=== PATIENT | male | born 1990 | race Caucasian/White ===

== ENCOUNTER 2016-06-12 16:51 | Emergency (ER) | payer OTHER ==
[2016-06-12 17:11] VITALS: BP 134/78
[2016-06-12] MEDS ORDERED: Fluorescein Sodium TOPICAL* 1 MG TEST ONE (17:29)
[2016-06-12] MEDS ORDERED: Tetracaine 0.5% OPTH.SOL 15ML* BTL ONE (17:30)
[2016-06-12] MEDS ORDERED: BSS OPTH.SOL* BTL ONE (17:30)
--- NOTE | 2016-06-12 17:59 | UC ---
Eye Complaint HPI - HPI Summary HPI Summary: L eye redness, irritation, and drainage since yesterday. Denies recent grinding , welding, or hammering. - History of Current Complaint Chief Complaint: UCEye Stated Complaint: EYE IRRITATION Time Seen by Provider: 06/12/16 17:11 Hx Obtained From: Patient Onset/Duration: Gradual Onset, Lasting Hours Timing: Constant Severity Initially: Mild Severity Currently: Mild Location of Injury: Conjunctiva Aggravating Factor(s): Nothing Alleviating Factor(s): Nothing Associated Signs And Symptoms: Positive: Drainage (Purulent) - Risk Factors Penetrating Injury Risk Factor: Negative - Allergies/Home Medications Allergies/Adverse Reactions: Allergies Allergy/AdvReac Type Severity Reaction Status Date / Time Azithromycin Allergy Hives Verified 06/12/16 17:13 [From Zithromax Z-Bhanu] Home Medications: Home Medications Amphetamine-Dextroamphetamine [Adderall 10 mg-] 1 tab PO DAILY 06/12/16 [ History Confirmed 06/12/16] Bupropion XL (NF) [Wellbutrin XL (NF)] 1 06/12/16 [History] PMH/Surg Hx/FS Hx/Imm Hx Endocrine History Of: Denies: Diabetes, Thyroid Disease Cardiovascular History Of: Denies: Cardiac Disorders, Hypertension Respiratory History Of: Denies: COPD, Asthma GI/ History Of: Denies: Ulcer - Surgical History Surgical History: None Surgery Procedure, Year, and Place: wisdom teeth - Family History Known Family History: Positive: Hypertension - Social History Lives: Alone Alcohol Use: Weekly Substance Use Type: None Smoking Status (MU): Former Smoker Length of Time of Smoking/Using Tobacco: 3 years When Did the Patient Quit Smoking/Using Tobacco: 2016 - Immunization History Most Recent Influenza Vaccination: denies Review of Systems Constitutional: Negative Skin: Negative Eyes: Drainage, Eye Redness ENT: Negative Respiratory: Negative Cardiovascular: Negative Gastrointestinal: Negative Genitourinary: Negative Motor: Negative Neurovascular: Negative Musculoskeletal: Negative Neurological: Negative Psychological: Negative All Other Systems Reviewed And Are Negative: Yes Physical Exam Triage Information Reviewed: Yes Appearance: Well-Appearing, No Pain Distress, Well-Nourished Vital Signs: Initial Vital Signs Temp 97.7 F 06/12/16 17:03 Pulse 76 06/12/16 17:03 Resp 18 06/12/16 17:03 BP 134/78 06/12/16 17:03 Pulse Ox 100 06/12/16 17:03 Vital Signs Reviewed: Yes Eye Exam: Other - PERRL, fluorescein dye test negative for uptake Eyes: Positive: Conjunctiva Inflamed ENT Exam: Normal ENT: Positive: Normal ENT inspection, Hearing grossly normal, Pharynx normal, TMs normal Dental Exam: Normal Neck exam: Normal Neck: Positive: Supple, Nontender, No Lymphadenopathy Respiratory Exam: Normal Respiratory: Positive: Chest non-tender, Lungs clear, Normal breath sounds, No respiratory distress, No accessory muscle use Cardiovascular Exam: Normal Cardiovascular: Positive: RRR, No Murmur Musculoskeletal Exam: Normal Neurological Exam: Normal Psychological Exam: Normal Skin Exam: Normal Eye Complaint Course/Dx - Differential Dx/Diagnosis Provider Diagnoses: L eye conjunctivitis Discharge - Discharge Plan Condition: Stable Disposition: HOME Prescriptions: Ciprofloxacin 0.3% OPTH.ESTER* [Cipro 0.3% Opth*] 2 drop LEFT EYE QID #5 ml Patient Education Materials: Conjunctivitis (ED) Additional Instructions: Use drops until symptoms resolve for 48 hours. Come back if you have new or worsening symptoms, or if you have not seen some improvement within a week.
[2016-06-12] MEDS ORDERED: Ciprofloxacin 0.3% OPTH.SOL* 2.5 ML BTL LEFT EYE ONE (18:01)
== END 2016-06-12 17:58 | disposition home or self-care (01) ==
LOC: UCEAST 16:51
DX: H10.32 Unspecified acute conjunctivitis, left eye (principal); Z88.1 Allergy status to other antibiotic agents; Z87.891 Personal history of nicotine dependence
CPT/HCPCS: 99212; A9270-GY; G0463

== ENCOUNTER 2019-06-12 08:21 | Emergency (ER) | payer OTHER ==
--- OUTSIDE RECORDS SUMMARY | 2019-06-12 08:28 | XMS REPORT ---
:1990 Author Organization [facility] Care Team Providers Name Role Phone Tayo Schilling Primary Care Physician Unavailable Allergies, Adverse Reactions, Alerts Allergy Code CodeSystem Reaction Severity Criticality Status Start Substance Date Moderate Medications Medication Medication Medication Start Stop Route Dose Status Fill Code CodeSystem Date Date Instructions RxNorm Problems Problem Name Code CodeSystem Alternate Alternate Start End Status Narrative Code CodeSystem Date Date Disturbance 87753252 SNOMED-CT 2018-04 Active of activity 05-09 and attention Relevant diagnostic tests/laboratory data Narrative No Information Procedures Procedure Code CodeSystem Target Date of Status Service Device Device Device Name Site Procedure Delivery Code Name UID Location Psychother 5098801 SNOMED-CT () 2019-03-26 completed Mental apy, 45 [facility] patient [address], [place], [id number] SNOMED-CT () 2019-04-[address], [id number] SNOMED-CT () 2019-02-[address], [id number] Encounters/Encounter Diagnoses Encounter Name Encounter Diagnosis Diagnosis Diagnosis Date of Service Code Code Name CodeSystem Diagnosis Delivery Location Psychotherapy - 06092 SNOMED-CT 2019-04-14 Behavioral [facility] [address], [place], [phone] Vital Signs No Information Social History Element Description Description Start End Code CodeSystem AdditionalInfo Date Date SexAssignedAtBirth Male 1990-0 M AdministrativeGender 10-07 Hospital Discharge Instructions Reason For Referral Medical Equipment FDA Assessments
[2019-06-12 09:11] VITALS: BP 109/68
--- NOTE | 2019-06-12 10:05 | UC ---
Abdominal Pain Male HPI - HPI Summary HPI Summary: 28 yo male presents with abdominal pain. He tells me that on 06/10 he developed periumbilical pain and loose stools. This continued into yesterday at which point he became nauseous with a decreased appetite. Last night and over the night his abdominal pain worsened and he was up about 4-5 times with a BM. This morning he has gone about 3 times. States stool is mostly watery with intermittent "green chunks". He has not vomited. Has not eaten today, but has been drinking water. Endorses a headache. Denies fever, chills, SOB, chest pain , vomiting, blood in stool, dysuria, flank pain. - History of Current Complaint Chief Complaint: UCAbdominalPain Stated Complaint: ABDOMINAL COMPLAINT Time Seen by Provider: 06/12/19 10:04 Hx Obtained From: Patient Onset/Duration: Gradual Onset Severity Initially: Mild Severity Currently: Moderate Pain Intensity: 7 Pain Scale Used: 0-10 Numeric - Allergies/Home Medications Allergies/Adverse Reactions: Allergies Allergy/AdvReac Type Severity Reaction Status Date / Time azithromycin Allergy Hives Verified 06/12/19 09:03 Home Medications: Home Medications Bupropion XL (NF) [Wellbutrin XL 300 MG (NF)] 1 tab PO DAILY 06/12/16 [History Confirmed 06/12/19] Dextroamphetamine/Amphetamine [Adderall 10 mg-] 1 tab PO DAILY 06/12/16 [ History Confirmed 06/12/19] PMH/Surg Hx/FS Hx/Imm Hx - Additional Past Medical History Additional PMH: ADD Anxiety - Surgical History Surgical History: Yes Surgery Procedure, Year, and Place: wisdom teeth - Family History Known Family History: Positive: Hypertension - Social History Lives: Alone Alcohol Use: None Substance Use Type: None Smoking Status (MU): Former Smoker Length of Time of Smoking/Using Tobacco: 3 years When Did the Patient Quit Smoking/Using Tobacco: 2014 - Immunization History Most Recent Influenza Vaccination: denies Review of Systems All Other Systems Reviewed And Are Negative: No Constitutional: Positive: Negative Skin: Positive: Negative Eyes: Positive: Negative ENT: Positive: Negative Respiratory: Positive: Negative Cardiovascular: Positive: Negative Gastrointestinal: Positive: Abdominal Pain, Diarrhea, Nausea Genitourinary: Positive: Negative Motor: Positive: Negative Neurovascular: Positive: Negative Musculoskeletal: Positive: Negative Neurological/Mental Status: Positive: Headache Psychological: Positive: Negative Physical Exam - Summary Physical Exam Summary: GENERAL: NAD. WDWN. No pain distress. SKIN: No rashes, sores, or open wounds. HEENT: Head: AT/NC Eyes: PERRLA. EOM intact. Conjunctiva clear without inflammation or discharge. Ears: Hearing grossly normal. TMs intact, no bulging, erythema, or edema. Nose: Nasal mucosa pink and moist. NTTP maxillary and frontal sinus. Throat: Posterior oropharynx without exudates, erythema, or tonsillar enlargement. Uvula midline. NECK: Supple. Nontender. No lymphadenopathy. CHEST: CTAB. No r/r/w. No accessory muscle use. Breathing comfortably and in no distress. CV: RRR. Pulses intact. Brisk cap refill. ABDOMEN: Mild RLQ mcburnery point TTP. Negative psoas and rovsings. No distention or guarding. No CVA tenderness. Bowel sounds present NEURO: Alert. PSYCH: Age appropriate behavior. Triage Information Reviewed: Yes Vital Signs: Initial Vital Signs Temp 99.4 F 06/12/19 09:04 Pulse 106 06/12/19 09:04 Resp 18 06/12/19 09:04 BP 109/68 06/12/19 09:04 Pulse Ox 99 06/12/19 09:04 Vital Signs Reviewed: Yes Abd Pain Male Course/Dx - Course Course Of Treatment: Given RLQ pain with worsening abdominal pain over the last 2.5 days - recommend going to the ED for further evaluation over concerns of appendicitis. I discussed this with the pt and asked that he remain NPO and he states he will go to the ED now. - Differential Dx/Clinical Impression Provider Diagnosis: RLQ abdominal pain, Diarrhea Discharge ED - Sign-Out/Discharge Documenting (check all that apply): Patient Departure All imaging exams completed and their final reports reviewed: No Studies - Discharge Plan Condition: Stable Disposition: HOME-RECOMMEND TO ED Referrals: Ramsey Prince MD [Primary Care Provider] - Additional Instructions: Please go to the ER for further evaluation of your RLQ abdominal pain. Nothing to eat or drink until seen -- Concern for appendicitis today from CC - Billing Disposition and Condition Condition: STABLE Disposition: Home-Recommend to ED
== END 2019-06-12 10:40 | disposition home health service (06) ==
LOC: UCEAST 08:21
DX: R19.7 Diarrhea, unspecified (principal); R10.31 Right lower quadrant pain; R51 Headache; R11.0 Nausea; F98.8 Other specified behavioral and emotional disorders with onset usually occurring in childhood and adolescence; F41.9 Anxiety disorder, unspecified; Z79.899 Other long term (current) drug therapy; Z87.891 Personal history of nicotine dependence; Z88.1 Allergy status to other antibiotic agents
CPT/HCPCS: 99212; G0463

== ENCOUNTER 2019-06-12 11:12 | Emergency (ER) | payer OTHER ==
[2019-06-12] MEDS ORDERED: Ketorolac INJ* 30 MG/ML 1 ML VIAL IV PUSH ONE (11:43)
[2019-06-12] MEDS ORDERED: NS 0.9% 1000 ML** 1,000 ML IV ONE ×2 (11:43→12:32)
--- NOTE | 2019-06-12 11:49 | ED ---
GI/ HPI - HPI Summary HPI Summary: 28 year old male presents with abdominal pain today. He has been having diarrhea. Pain is located periumbilically. States when he has the diarrhea the pain is better. He denies any n/v. He has not had much of an appetite. Denies any fevers. No urinary symptoms. No previous surgeries. He did not eat anything different. people are sick around him. No recent travel. Has not been on antibiotics recently. Denies any blood in his stool. Has no medical conditions. - History of Current Complaint Chief Complaint: EDAbdPain Time Seen by Provider: 06/12/19 11:29 Stated Complaint: ABD PAIN PER PT Pain Intensity: 4 - Allergy/Home Medications Allergies/Adverse Reactions: Allergies Allergy/AdvReac Type Severity Reaction Status Date / Time azithromycin Allergy Hives Verified 06/12/19 11:18 Home Medications: Home Medications Bupropion XL (NF) [Wellbutrin XL 300 MG (NF)] 300 mg PO DAILY 06/12/16 [History Confirmed 06/12/19] Dextroamphetamine/Amphetamine [Adderall 10 mg-] 20 mg PO DAILY 06/12/16 [ History Confirmed 06/12/19] Albuterol HFA INHALER* [Ventolin HFA Inhaler*] 2 puff INH Q6H PRN 06/12/19 [ History Confirmed 06/12/19] Amoxicillin/Clavulanate TAB* [Augmentin TAB 500 mg*] 500 mg PO BID #13 tab 06/12 [Rx] metroNIDAZOLE [Flagyl 500 MG TAB] 500 mg PO TID #20 tab 06/12/19 [Rx] PMH/Surg Hx/FS Hx/Imm Hx Endocrine/Hematology History: Denies: Hx Diabetes, Hx Thyroid Disease Cardiovascular History: Denies: Hx Hypertension Respiratory History: Denies: Hx Asthma, Hx Chronic Obstructive Pulmonary Disease (COPD) GI History: Denies: Hx Ulcer - Surgical History Surgery Procedure, Year, and Place: wisdom teeth Infectious Disease History: No Infectious Disease History: Denies: Hx Clostridium Difficile, Hx Hepatitis, Hx Human Immunodeficiency Virus (HIV), Hx of Known/Suspected MRSA, Hx Shingles, Hx Tuberculosis, Hx Known/ Suspected VRE, Hx Known/Suspected VRSA, History Other Infectious Disease, Traveled Outside the [place] in Last 30 Days - Family History Known Family History: Positive: Hypertension - Social History Alcohol Use: None Substance Use Type: Reports: None Smoking Status (MU): Former Smoker Length of Time of Smoking/Using Tobacco: 3 years Review of Systems Negative: Fever Negative: Chest Pain Negative: Shortness Of Breath Positive: Abdominal Pain, Diarrhea. Negative: Vomiting, Nausea All Other Systems Reviewed And Are Negative: Yes Physical Exam Triage Information Reviewed: Yes Vital Signs On Initial Exam: Initial Vitals Temp Pulse Resp BP Pulse Ox 98.7 F 106 16 131/93 94 06/12/19 11:15 06/12/19 11:15 06/12/19 11:15 06/12/19 11:15 06/12/19 11:15 Vital Signs Reviewed: Yes Appearance: Positive: Well-Appearing Skin: Positive: Warm, Dry Head/Face: Positive: Normal Head/Face Inspection Eyes: Positive: Normal, Conjunctiva Clear ENT: Positive: Pharynx normal Respiratory/Lung Sounds: Positive: Clear to Auscultation, Breath Sounds Present Cardiovascular: Positive: Normal, RRR Abdomen Description: Positive: Soft, Other: - tenderness in RLQ Bowel Sounds: Positive: Present Musculoskeletal: Positive: Normal Neurological: Positive: Normal Psychiatric: Positive: Normal Procedures - Sedation Patient Received Moderate/Deep Sedation with Procedure: No Diagnostics - Vital Signs Vital Signs Temp Pulse Resp BP Pulse Ox 06/12/19 11:15 98.7 F 106 16 131/93 94 - Laboratory Result Diagrams: 06/12/19 11:51 06/12/19 11:51 Lab Statement: Any lab studies that have been ordered have been reviewed, and results considered in the medical decision making process. - CT abd CT Interpretation Completed By: Radiologist Summary of CT Findings: IMPRESSION: Diffuse wall thickening of the entire colon suggestive of pancolitis. No other masses or fluid collections are identified. No free fluid is identified. Re-Evaluation - Re-Evaluation First Eval Re-Evaluation Time: 13:19 Change: Improved Comment: feeling better GIGU Course/Dx - Course Course Of Treatment: 28 year old male presents with abdominal pain today. He has been having diarrhea. Pain is located periumbilically. States when he has the diarrhea the pain is better. He denies any n/v. He has not had much of an appetite. Denies any fevers. No urinary symptoms. No previous surgeries. He did not eat anything different. people are sick around him. No recent travel. Has not been on antibiotics recently. Denies any blood in his stool. Has no medical conditions. On exam tenderness in RLQ. No rebound. Negative Rovsing' s. wbc normal. crp elevated. CT shows colitis. c diff neg. will treat with flagyl and augmentin. told if develop bloody stool to follow up with GI. patient understand and agrees with plan. - Diagnoses Differential Diagnoses - Male: Appendicitis, Colitis, Gastroenteritis (Viral) Provider Diagnoses: Colitis Discharge ED - Sign-Out/Discharge Documenting (check all that apply): Patient Departure - Discharge Plan Condition: Good Disposition: HOME Prescriptions: Amoxicillin/Clavulanate TAB* [Augmentin TAB 500 mg*] 500 mg PO BID #13 tab metroNIDAZOLE [Flagyl 500 MG TAB] 500 mg PO TID #20 tab Patient Education Materials: Colitis (ED) Forms: *Work Release Referrals: Bob Jain MD [Medical Doctor] - Ramsey Prince MD [Primary Care Provider] - Additional Instructions: Take augmentin twice a day for 7 days, first dose given in ED Take Flagyl every 8 hours for 7 days, first dose given in ED drink plenty of fluids take Tylenol or ibuprofen for pain every 6 hours follow up with primary within 5 days a referral was given to GI Return to ED if develop any new or worsening symptoms - Billing Disposition and Condition Condition: GOOD Disposition: Home
[2019-06-12 11:58] LABS: ABS Lymphocytes 0.7 10^3/ul (1.0-4.8); ABS Monocytes 0.8 10^3/ul (0-0.8); ABS Neutrophils 5.2 10^3/ul (1.5-7.7); Eosinophil % 0.2 %; Hematocrit 45 % (42-52); Lymphocyte % 10.2 %; Mean Corpuscular HGB Conc 35 g/dL (31-36); Mean Corpuscular Hemoglobin 30 pg (27-31); Mean Corpuscular Volume 85 fL (80-94); Mean Platelet Volume 7.8 fL (7.4-10.4); Nucleated Red Blood Cells % 0.2; Platelet Count 172 10^3/uL (150-450); Red Blood Count 5.34 10^6 /uL (4.18-5.48); Red Cell Distribution Width 13 % (10-15); White Blood Count 6.8 10^3/uL (3.5-10.8)
[2019-06-12 12:19] LABS: Albumin 4.6 g/dL (3.2-5.2); Albumin/Globulin Ratio 1.7 (1-3); BUN/Creatinine Ratio 13.9 (8-20); C Reactive Protein 116.37 mg/L (<8.01); Calcium 9.4 mg/dL (8.6-10.3); EGFR African American 97.1 (>60); EGFR Non-African American 80.3 (>60); Globulin 2.7 g/dL (2-4); Potassium 3.7 mmol/L (3.5-5.0); Total Bilirubin 2.9 mg/dL (0.2-1.0); Total Protein 7.3 g/dL (6.4-8.9)
[2019-06-12 13:06] LABS: Urine Appearance Clear; Urine Bilirubin Negative (Negative); Urine Blood Negative (Negative); Urine Color Yellow; Urine Glucose Negative (Negative); Urine Ketones 1+ (Negative); Urine Nitrite Negative (Negative); Urine Protein Negative (Negative); Urine Urobilinogen Negative (Negative)
[2019-06-12] MEDS ORDERED: Iohexol 300* (CONTRAST) 10 ML SDV IV ONE (13:40)
[2019-06-12] MEDS ORDERED: metroNIDAZOLE TAB* 250 MG PO ONE (14:51)
[2019-06-12] MEDS ORDERED: Amoxicillin/Clavulanate TAB* 500 MG PO ONE (14:51)
[2019-06-12 15:17] VITALS: BP 132/83
== END 2019-06-12 15:16 | disposition home or self-care (01) ==
LOC: ED 11:12
DX: K52.9 Noninfective gastroenteritis and colitis, unspecified (principal); Z87.891 Personal history of nicotine dependence; Z79.899 Other long term (current) drug therapy; Z88.0 Allergy status to penicillin
CPT/HCPCS: 36415; 74177; 80053; 81003; 83605; 83690; 85025; 86140; 87045; 87046; 87077; 87493; 87899; 96361; 96374; 99283; A9270-GY; J1885; Q9967